=== PATIENT | female | born 1980 | race Caucasian/White ===

== ENCOUNTER 2016-08-19 21:48 | Emergency (ER) | payer SELFPAY ==
[~2016-08-19 21:48] MED LIST: DICLOXACILLIN500 M1 PO; FIORICET 325 MG1 TAB PO; IBUPROFEN600 MG PO; LORTAB PO; MIDRIN 325 MG-11 CAP PO; NO HOME MEDICATIONS; NORCO 325 MG-51 TAB PO; PRENATAL VITAMI1 TA5 PO; REGLAN 10MG10 MG/TAB PO; VICODIN 5/5001 UDTAB PO
[2016-08-19 21:52] VITALS: TEMP 98.1
[2016-08-20 00:09] VITALS: BP 117/74; PULSE 77
== END 2016-08-20 00:11 | disposition home or self-care (01) ==
LOC: COL.ER 21:48
DX: G43.909 Migraine, unspecified, not intractable, without status migrainosus (principal)
CPT/HCPCS: J1885; J2060; J3030

== ENCOUNTER 2016-10-22 14:06 | Emergency (ER) | payer SELFPAY ==
[~2016-10-22] VITALS: Ht 152.4 cm; Wt 63.6 kg
[2016-10-22 14:12] VITALS: TEMP 98.1
[2016-10-22 15:57] LABS: BASO % 0.2 % (0.0-2.0); EOS # 0.1 (0.0-0.7); EOS % 0.7 % (0-4.0); GRAN # 7.2 (1.4-6.5); GRAN % 74.4 % (42.2-75.2); LYMPH # 1.9 (1.2-3.4); LYMPH % 19.7 % (20.0-51.0); MEAN CELL VOLUME 91 fl (80.0-100.0); MEAN CORPUSCULAR HEMOGLOBIN 30 pg (27.0-31.0); MEAN CORPUSCULAR HGB CONC 33 g/dl (33.0-37.0); MEAN PLATELET VOLUME 10.8 fl (7.4-10.4); MONO # 0.5 (0.1-0.6); MONO % 4.7 % (1.7-9.3); PLATELET COUNT 211 K/mm3 (130-400); REDCELL DISTRIBUTION WIDTH-CV 12.4 % (11.5-14.5); WHITE BLOOD COUNT 9.7 K/mm3 (4.8-10.8)
[2016-10-22 15:58] LABS: HEMATOCRIT 36.3 % (37.0-47.0)
[2016-10-22 16:01] LABS: ALBUMIN 3.9 gm/dL (3.5-5.0); BILIRUBIN,TOTAL 0.6 mg/dL (0.0-1.0); CALCIUM 8.9 mg/dL (8.4-10.2); CREATININE, serum 0.41 mg/dL (0.52-1.25); TOTAL PROTEIN 7.3 gm/dL (6.4-8.2)
[2016-10-22 17:11] VITALS: BP 107/67; PULSE 70
== END 2016-10-22 17:12 | disposition home or self-care (01) ==
LOC: COL.ER 14:06
PROVIDERS: Emergency Medicine
DX: O26.891 Other specified pregnancy related conditions, first trimester (principal); R42 Dizziness and giddiness; Z3A.10 10 weeks gestation of pregnancy
CPT/HCPCS: J1200; J2765; J7030

== ENCOUNTER 2017-05-20 18:59 | Outpatient (CLI) | payer MEDICAID ==
[~2017-05-20] VITALS: Ht 152.4 cm; Wt 81.8 kg
[2017-05-20] MEDS ORDERED: SYNTHROID0.05 MG/TA PO (19:21)
[2017-05-20] MEDS ORDERED: PRENATAL MVI (19:21)
[2017-05-20 19:30] VITALS: BP 127/78; PULSE 90; TEMP 97.6
[2017-05-20 20:00] VITALS: BP 128/78; PULSE 88
[2017-05-20 20:35] VITALS: BP 117/72; PULSE 86
== END 2017-05-20 20:45 | disposition home or self-care (01) ==
LOC: LDRO 18:59
DX: O09.523 Supervision of elderly multigravida, third trimester (principal); Z3A.39 39 weeks gestation of pregnancy

== ENCOUNTER 2017-05-22 06:56 | Inpatient (IN) | payer MEDICAID ==
[~2017-05-22] VITALS: Ht 154.9 cm; Wt 82.7 kg
[2017-05-22] VITALS (30 sets, daily range): BP systolic 101–137; BP diastolic 52–87; PULSE 64–94; TEMP 97.5–98.4
[~2017-05-22 06:56] MED LIST changes: +PRENATAL MVI; +SYNTHROID0.05 MG/TA PO
[2017-05-22 07:54] LABS: BASO % 0.4 % (0.0-2.0); EOS # 0.1 (0.0-0.7); EOS % 1.8 % (0-4.0); GRAN # 4.8 (1.4-6.5); GRAN % 60.3 % (42.2-75.2); HEMATOCRIT 38.6 % (37.0-47.0); HEMOGLOBIN 12.7 g/dl (12.5-16.0); LYMPH # 2.4 (1.2-3.4); LYMPH % 30.4 % (20.0-51.0); MEAN CELL VOLUME 91 fl (80.0-100.0); MEAN CORPUSCULAR HEMOGLOBIN 30 pg (27.0-31.0); MEAN CORPUSCULAR HGB CONC 33 g/dl (33.0-37.0); MEAN PLATELET VOLUME 12.6 fl (7.4-10.4); MONO # 0.5 (0.1-0.6); MONO % 6.6 % (1.7-9.3); PLATELET COUNT 135 K/mm3 (130-400); RED BLOOD COUNT 4.23 M/mm3 (4.10-5.30); WHITE BLOOD COUNT 7.9 K/mm3 (4.8-10.8)
[2017-05-22] MEDS ORDERED: MOTRIN 800800 MG/TAB PO (16:29)
[2017-05-22] MEDS ORDERED: PERCOCET 325 MG1 TA2 PO (16:29)
[2017-05-23] VITALS: BP 105/62; PULSE 96; TEMP 98.5
[2017-05-23 04:30] VITALS: BP 125/62; PULSE 78; TEMP 97.7
[2017-05-23 07:36] VITALS: BP 108/63; PULSE 87; TEMP 97.6
[2017-05-23 15:58] VITALS: BP 116/61; PULSE 91; TEMP 97.8
[2017-05-23 20:30] VITALS: BP 118/72; PULSE 78; TEMP 97.7
[2017-05-24 07:45] VITALS: BP 109/70; PULSE 74; TEMP 98.4
== END 2017-05-24 13:30 | disposition home or self-care (01) | DRG 775 ==
LOC: LDR 06:56 → OB 15:30 → EDSTATUS 05-27 06:54 → LDRO 05-27 10:32
PROVIDERS: Obstetrics & Gynecology
PROC: 10E0XZZ Delivery of Products of Conception, External Approach (ICD-10-PCS; principal; 2017-05-22)
PROC: 0HQ9XZZ Repair Perineum Skin, External Approach (ICD-10-PCS; 2017-05-22)
DX: O35.1XX0 Maternal care for (suspected) chromosomal abnormality in fetus, not applicable or unspecified (principal); O99.284 Endocrine, nutritional and metabolic diseases complicating childbirth; E03.9 Hypothyroidism, unspecified; O69.81X0 Labor and delivery complicated by cord around neck, without compression, not applicable or unspecified; O77.0 Labor and delivery complicated by meconium in amniotic fluid; O70.0 First degree perineal laceration during delivery; Z3A.39 39 weeks gestation of pregnancy; Z37.0 Single live birth
CPT/HCPCS: J2540; J2590; J2795; J7120